=== PATIENT | male | born 1975 | race Caucasian/White ===

== ENCOUNTER 2020-06-20 09:31 | Emergency (ER) | payer BC ==
[2020-06-20 09:36] VITALS: BP 160/103; PULSE 85; RESP 18; TEMP 98.4
[2020-06-20] MEDS ORDERED: PROPARACAINE 0.5% OPHTH DROPS 15 ML BTL BOTH EYES STA (09:44)
[2020-06-20] MEDS ORDERED: FLUORESCEIN STRIPS 1 MG STRIP BOTH EYES ONE (09:44)
[2020-06-20] MEDS ORDERED: CIPROFLOXACIN 0.3% OPHTH SOLN 5 ML BTL BOTH EYES STA (10:13)
--- NOTE | 2020-06-20 10:16 | ED ---
Eye Problem HPI - General Chief complaint: Eye Problems Stated complaint: eye problem Time Seen by Provider: 06/20/20 09:43 Source: patient, RN notes reviewed, old records reviewed Mode of arrival: ambulatory Limitations: no limitations - History of Present Illness Initial comments: This is a pleasant 45 rolled male who presents to the ER today for evaluation for right eye pain. 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 He reports he rubbed his eye and inspected for any foreign body but is now concerned for an abrasion. He's had a history of multiple corneal abrasions in the past. Visual acuity is intact 20/30 on the right 20/20 on the left. He flores s not wear glasses or contacts. Patient denies any pain with bright lights or pain with extra ocular eye movements. - Related Data Previous Rx's Medication Instructions Recorded Ciprofloxacin Ophth Soln [Cipro 1 drops LEFT EYE Q4HR #1 bottle 06/20/20 Ophth Soln] Allergies Allergy/AdvReac Type Severity Reaction Status Date / Time No Known Allergies Allergy Verified 06/20/20 09:32 Review of Systems ROS Statement: Those systems with pertinent positive or pertinent negative responses have been documented in the HPI. ROS Other: All systems not noted in ROS Statement are negative. Past Medical History Past Medical History: Hypertension History of Any Multi-Drug Resistant Organisms: None Reported Past Surgical History: Tonsillectomy Past Psychological History: Anxiety Smoking Status: Never smoker Past Alcohol Use History: Occasional Past Drug Use History: None Reported General Exam - General Exam Comments Initial Comments: 45-year-old male. Alert and oriented 3. No acute distress. Limitations: no limitations General appearance: alert, in no apparent distress Head exam: Present: atraumatic, normocephalic, normal inspection Eye exam: Present: normal appearance, PERRL, EOMI, other. Absent: scleral icterus, conjunctival injection, periorbital swelling ENT exam: Present: normal exam, normal oropharynx, mucous membranes moist Neck exam: Present: normal inspection. Absent: tenderness, meningismus, lymphadenopathy Respiratory exam: Present: normal lung sounds bilaterally (Patient has a corneal abrasion at the 6 to 8 o'clock position on the right eye. No retained foreign body. No rust rings.). Absent: respiratory distress, wheezes, rales, rhonchi, stridor Course Vital Signs 06/20/20 09:32 Temperature 98.4 F Pulse Rate 85 Respiratory 18 Rate Blood Pressure 160/103 O2 Sat by Pulse 99 Oximetry Medical Decision Making - Medical Decision Making Present she'll male presents with concern for right eye irritation. He was putting up would and wouldn't sought S1 went in his eye last night. He may have rubbed and causing abrasion. This time Patient has evidence of a corneal abrasion at the 6 to 8 o'clock position. Visual acuity is intact 20/30 on the right 20/20 in the left. Patient has no retained foreign body. Patient's pupils equal and reactive no pain with bright lights or extraocular eye movements. Patient was placed on antibiotic drops for the corneal abrasion and advised to follow-up with ophthalmology to avoid ulcer forming. Patient has seen de icer installer in the past. He previously saw Dr. Guerrero. Patient will be given a referral back to Dr. Guerrero as well as on-call de icer installer Dr. Womack. Disposition Clinical Impression: Corneal abrasion Disposition: HOME SELF-CARE Condition: Good Instructions (If sedation given, give patient instructions): Corneal Abrasion (ED) Additional Instructions: Patient advised to place the eye drops in every 4 hours. Follow-up with ophthalmology on Sunday. Patient can return to the ED if any alarming signs or symptoms occur. Prescriptions: Ciprofloxacin Ophth Soln [Cipro Ophth Soln] 1 drops LEFT EYE Q4HR #1 bottle Is patient prescribed a controlled substance at d/c from ED?: No Referrals: Lee Gil MD [Primary Care Provider] - 1-2 days Porfirio Womack MD [STAFF PHYSICIAN] - 1-2 days Sobeida Guerrero MD [STAFF PHYSICIAN] - 1-2 days Time of Disposition: 10:14
== END 2020-06-20 10:32 | disposition home or self-care (01) ==
LOC: EC 09:31
DX: S05.01XA Injury of conjunctiva and corneal abrasion without foreign body, right eye, initial encounter (principal); I10 Essential (primary) hypertension; X58.XXXA Exposure to other specified factors, initial encounter
CPT/HCPCS: 99283

== ENCOUNTER 2022-09-26 08:01 | Emergency (ER) | payer BC ==
[2022-09-26 08:08] VITALS: TEMP 97.5
[2022-09-26] MEDS ORDERED: METOCLOPRAMIDE 5 MG/ML 2 ML VIAL IVP STA (08:27)
[2022-09-26] MEDS ORDERED: SODIUM CHLORIDE 0.9% 1,000 ML IV STA (08:27)
[2022-09-26] MEDS ORDERED: PANTOPRAZOLE 40 MG/10 ML VIAL IVP STA (08:28)
--- NOTE | 2022-09-26 08:43 | ED ---
General Adult HPI - General Chief complaint: Nausea/Vomiting/Diarrhea Stated complaint: vomiting Time Seen by Provider: 09/26/22 08:09 Source: patient, RN notes reviewed Mode of arrival: ambulatory Limitations: no limitations - History of Present Illness Initial comments: 47-year-old male presents emergency Department chief complaint of nausea vomiting, hematemesis. Patient states that he was at work started feeling very flushed feeling, nauseous states he vomited and was all blood. Patient states he has no abdominal pain. Patient denies any history of peptic ulcer disease denies any recurrent issues with heartburn. Patient states he is on no current medications he used to be on clonidine for blood pressure. Patient does admit that he drinks beer on her regular basis. But denies any history of liver disease, ascites or varices. Patient has no hematuria denies any melanotic stools - Related Data Home Medications Medication Instructions Recorded Confirmed No Known Home Medications 09/26/22 09/26/22 Allergies Allergy/AdvReac Type Severity Reaction Status Date / Time No Known Allergies Allergy Verified 09/26/22 09:45 Review of Systems ROS Statement: Those systems with pertinent positive or pertinent negative responses have been documented in the HPI. ROS Other: All systems not noted in ROS Statement are negative. Past Medical History Past Medical History: Hypertension History of Any Multi-Drug Resistant Organisms: None Reported Past Surgical History: Tonsillectomy Past Psychological History: Anxiety Smoking Status: Never smoker Past Alcohol Use History: Daily, Heavy Past Drug Use History: None Reported General Exam Limitations: no limitations General appearance: alert, in no apparent distress Head exam: Present: atraumatic, normocephalic, normal inspection Eye exam: Present: normal appearance, PERRL, EOMI. Absent: scleral icterus, conjunctival injection, periorbital swelling ENT exam: Present: normal exam, normal oropharynx, mucous membranes moist Neck exam: Present: normal inspection, full ROM. Absent: tenderness, m eningismus, lymphadenopathy Respiratory exam: Present: normal lung sounds bilaterally. Absent: respiratory distress, wheezes, rales, rhonchi, stridor Cardiovascular Exam: Present: normal rhythm, tachycardia, normal heart sounds. Absent: systolic murmur, diastolic murmur, rubs, gallop, clicks GI/Abdominal exam: Present: soft, normal bowel sounds. Absent: distended, tenderness, guarding, rebound, rigid Course Vital Signs 09/26/22 09/26/22 08:05 09:05 Temperature 97.5 F L Pulse Rate 126 H 91 Respiratory 18 20 Rate Blood Pressure 130/89 137/97 O2 Sat by Pulse 100 97 Oximetry Medical Decision Making - Medical Decision Making Was pt. sent in by a medical professional or institution (ABDULKADIR Alex, SENIOR COGNOS DEVELOPER, urgent care, hospital, or [facility]...) When possible be specific @ -No Did you speak to anyone other than the patient for history (EMS, parent, family, police, friend...)? What history was obtained from this source @ -No Did you review nursing and triage notes (agree or disagree)? Why? @ -I reviewed and agree with nursing and triage notes Were old charts reviewed (outside hosp., previous admission, EMS record, old EKG, old radiological studies, urgent care reports/EKG's, [facility] records)? Report findings @ -No old charts were reviewed Differential Diagnosis (chest pain, altered mental status, abdominal pain women, abdominal pain men, vaginal bleeding, weakness, fever, dyspnea, syncope, headache, dizziness, GI bleed, back pain, seizure, CVA, palpatations, mental health, musculoskeletal)? @ -Differential GI Bleed: Esophageal varices, aortoenteric fistula, Kate-Cameron, gastritis, peptic ulcer disease, diverticulosis, inflammatory bowel disease, hemorrhoids, fissure, colitis, malignancy, Meckels diverticulum, this is not meant to be an all- inclusive list. EKG interpreted by me (3pts min.). @ -EKG performed at 8:37 sinus tachycardia rate 110 CO 143 QRS 83 QT/QTC 295/360 X-rays interpreted by me (1pt min.). @ -None done CT interpreted by me (1pt min.). @ -[CT abdomen and pelvis shows area of hyperdensity concerning for GE hemorrhage, possible tear versus ulceration U/S interpreted by me (1pt. min.). @ -None done What testing was considered but not performed or refused? (CT, X-rays, U/S, labs)? Why? @ -None What meds were considered but not given or refused? Why? @ -None Did you discuss the management of the patient with other professionals (professionals i.e. , ABDULKADIR, SENIOR COGNOS DEVELOPER, lab, RT, psych nurse, clinical social worker, hose operator, teacher, chairman and chief executive officer, case checker)? Give summary @ -[Shankar Figueroa for transfer for GI services Was smoking cessation discussed for >3mins.? @ -No Was critical care preformed (if so, how long)? @ -No Were there social determinants of health that impacted care today? How? (Homelessness, low income, unemployed, alcoholism, drug addiction, transportation, low edu. Level, literacy, decrease access to med. care, senior care, rehab)? @ -No Was there de-escalation of care discussed even if they declined (Discuss DNR or withdrawal of care, Hospice)? DNR status @ -No What co-morbidities impacted this encounter? (DM, HTN, Smoking, COPD, CAD, Cancer, CVA, ARF, Chemo, Hep., AIDS, mental health diagnosis, sleep apnea, morbid obesity)? @ -Alcohol abuse Was patient admitted / discharged? Hospital course, mention meds given and route, prescriptions, significant lab abnormalities, going to OR and other pertinent info. @ -[facility] has hematemesis concerning for possible variceal bleeding, ulceration, GE junction tear Undiagnosed new problem with uncertain prognosis? @ -No Drug Therapy requiring intensive monitoring for toxicity (Heparin, Nitro, Insulin, Cardizem)? @ -No Were any procedures done? @ -No Diagnosis/symptom? @ -Upper GI bleed, hematemesis Acute, or Chronic, or Acute on Chronic? @ -Acute Uncomplicated (without systemic symptoms) or Complicated (systemic symptoms)? @ -Complicated Side effects of treatment? @ -No Exacerbation, Progression, or Severe Exacerbation? @ -No Poses a threat to life or bodily function? How? (Chest pain, [place], [place], pneumonia, PE, COPD, DKA, ARF, appy, cholecystitis, CVA, Diverticulitis, Homicidal, Suicidal, threat to staff... and all critical care pts) @ -[Yes patient has GI bleed upper - Lab Data Result diagrams: 09/26/22 08:52 09/26/22 08:52 Lab Results 09/26/22 09/26/22 09/26/22 Range/Units 08:52 08:52 08:52 WBC 8.6 (3.8-10.6) k/uL RBC 4.64 (4.30-5.90) m/uL Hgb 13.6 (13.0-17.5) gm/dL Hct 42.9 (39.0-53.0) % MCV 92.4 (80.0-100.0) fL MCH 29.4 (25.0-35.0) pg MCHC 31.8 (31.0-37.0) g/dL RDW 12.3 (11.5-15.5) % Plt Count 180 (150-450) k/uL MPV 8.3 Neutrophils % 73 % Lymphocytes % 20 % Monocytes % 6 % Eosinophils % 1 % Basophils % 0 % Neutrophils # 6.2 (1.3-7.7) k/uL Lymphocytes # 1.7 (1.0-4.8) k/uL Monocytes # 0.5 (0-1.0) k/uL Eosinophils # 0.1 (0-0.7) k/uL Basophils # 0.0 (0-0.2) k/uL Sodium 137 (137-145) mmol/L Potassium 4.6 (3.5-5.1) mmol/L Chloride 100 (98-107) mmol/L Carbon Dioxide 22 (22-30) mmol/L Anion Gap 15 mmol/L BUN 12 (9-20) mg/dL Creatinine 0.82 (0.66-1.25) mg/dL Est GFR (CKD-EPI)AfAm >90 (>60 ml/min/1.73 sqM) Est GFR (CKD-EPI)NonAf >90 (>60 ml/min/1.73 sqM) Glucose 125 H (74-99) mg/dL Plasma Lactic Acid Dominguez 4.4 H* (0.7-2.0) mmol/L Calcium 8.9 (8.4-10.2) mg/dL Magnesium 1.9 (1.6-2.3) mg/dL Total Bilirubin 0.8 (0.2-1.3) mg/dL AST 209 H (17-59) U/L ALT 149 H (4-49) U/L Alkaline Phosphatase 102 (38-126) U/L Total Protein 7.5 (6.3-8.2) g/dL Albumin 4.5 (3.5-5.0) g/dL Lipase 273 (23-300) U/L Disposition Clinical Impression: Upper GI bleeding, Transaminitis, Alcohol use, Hematemesis Disposition: OTHER INSTITUTION NOT DEFINED Condition: Serious Referrals: None,Stated [Primary Care Provider] - 1-2 days Time of Disposition: 10:35 - Out of Hospital Transfer - Req. Specs Out of Hospital Transfer - Requested Specifics: Other Emergency Center ([facility])
[2022-09-26 09:19] LABS: Basophils % (A) 0 %; Eosinophils # (A) 0.1 k/uL (0-0.7); Eosinophils % (A) 1 %; HCT 42.9 % (39.0-53.0); HGB 13.6 gm/dL (13.0-17.5); Lymphocytes # (A) 1.7 k/uL (1.0-4.8); Lymphocytes % (A) 20 %; MCH 29.4 pg (25.0-35.0); MCHC 31.8 g/dL (31.0-37.0); MCV 92.4 fL (80.0-100.0); Mean Platelet Volume 8.3; Monocytes # (A) 0.5 k/uL (0-1.0); Monocytes % (A) 6 %; Neutrophils # (A) 6.2 k/uL (1.3-7.7); Neutrophils % (A) 73 %; Platelet Count 180 k/uL (150-450); RBC 4.64 m/uL (4.30-5.90); RDW 12.3 % (11.5-15.5); WBC 8.6 k/uL (3.8-10.6)
[2022-09-26 09:30] LABS: ALT 149 U/L (4-49); AST 209 U/L (17-59); African American GFR (CKD) >90 (>60 ml/min/1.73 sqM); Albumin 4.5 g/dL (3.5-5.0); Alkaline Phosphatase 102 U/L (38-126); Anion Gap 15 mmol/L; Blood Urea Nitrogen 12 mg/dL (9-20); Calcium 8.9 mg/dL (8.4-10.2); Carbon Dioxide 22 mmol/L (22-30); Chloride 100 mmol/L (98-107); Glucose 125 mg/dL (74-99); Lipase 273 U/L (23-300); Magnesium 1.9 mg/dL (1.6-2.3); Non-African American GFR(CKD) >90 (>60 ml/min/1.73 sqM); Potassium 4.6 mmol/L (3.5-5.1); Sodium 137 mmol/L (137-145); Total Bilirubin 0.8 mg/dL (0.2-1.3); Total Protein 7.5 g/dL (6.3-8.2)
--- NOTE | 2022-09-26 10:17 | CT ---
EXAMINATION TYPE: CT abdomen pelvis w con DATE OF EXAM: 09/26/2022 COMPARISON: None HISTORY: Vomiting up bright red blood CT DLP: 933 mGycm CONTRAST: CT scan of the abdomen and pelvis is performed without Oral Contrast and with IV Contrast, patient in jected with 100 mL of Isovue 300. FINDINGS: LUNG BASES-: No visible nodule. No infiltrate. LIVER/GB: No calcified gallstones. No space occupying hepatic lesion. Biliary tree is of normal ca liber. There is hepatomegaly with the heterogenous enhancement felt to reflect fatty liver with areas of focal fatty sparing. PANCREAS: No inflammation. No distinct mass. SPLEEN: No splenic enlargement. No lesion seen. ADRENALS: No nodule. No thickening. KIDNEYS/BLADDER: No hydronephrosis. No nephrolithiasis. No distinct renal mass. Urinary bladder g rossly unremarkable. BOWEL: There is evidence of gastric distention. At the GE junction seen best on image 19 sequence 201 there is focal hyperdensity seen confirmed on coronal image 53 sequence 202. There is additional hyp erdense debris within the gastric lumen. Consider consider possible traumatic tear versus ulceration/ hemorrhagic lesion. Direct visualization is advised. There is evidence of fluid within the distal eso phagus. The remainder of the gastrointestinal tract is of normal caliber. Normal-appearing appendix. GENITAL ORGANS: No gross abnormality. LYMPH NODES: No greater than 1cm abdominal or pelvic lymph nodes are appreciated. AORTA: No significant abnormality. OSSEOUS STRUCTURES: No significant abnormality is seen. OTHER: No significant additional abnormality is seen. IMPRESSION: 1. At the GE junction seen best on image 19 sequence 201 there is focal hyperdensity for which I jane ot exclude hemorrhage seen and confirmed on coronal image 53 sequence 202. There is additional hyperd ense debris within the gastric lumen. Consider consider possible traumatic tear versus ulceration/hem orrhagic lesion. Direct visualization is advised.
[2022-09-26] MEDS ORDERED: OCTREOTIDE 100 MCG/ML INJ IVP STA (10:27)
[2022-09-26] MEDS ORDERED: LORazepam 2 MG/ML INJ IV STA ×2 (10:31→12:16)
[2022-09-26 11:31] LABS: Partial Thromboplastin Time 20.4 sec (22.0-30.0); Prothrombin Time 10.6 sec (9.0-12.0)
[2022-09-26] MEDS ORDERED: SODIUM CHLORIDE 0.9% 1,000 ML IV ONE (12:17)
[2022-09-26 12:30] VITALS: BP 121/82; PULSE 140; RESP 20
== END 2022-09-26 12:39 | disposition other institution (70) ==
LOC: EC 08:01
DX: K92.2 Gastrointestinal hemorrhage, unspecified (principal); R74.01 Elevation of levels of liver transaminase levels; K92.0 Hematemesis; I10 Essential (primary) hypertension; F41.9 Anxiety disorder, unspecified
CPT/HCPCS: 36415; 93005; 86900; 86901; 80053; 83605; 83690; 83735; 85025; 85610; 85730; 86850; 74177; 99285; 96374; 96375 ×3; 96376; 96361 ×3; J2060; J2765; J2354; C9113; Q9967